=== PATIENT | female | born 1990 ===

== ENCOUNTER → 2018-08-31 | Outpatient (CLI) | payer OTHER ==
[2018-09-02 14:08] LABS: HPV 16 Negative (Negative); HPV 18 Negative (Negative); HPV OTHER HR TYPES Negative (Negative)
== END | disposition home or self-care (01) ==
LOC: LAB SHORT 09:19 → LAB 09:19
PROVIDERS: Nurse Practitioner Women's Health
DX: Z12.4 Encounter for screening for malignant neoplasm of cervix (principal)
CPT/HCPCS: 87624; G0123